=== PATIENT | male | born 1995 | race American Indian/Alaskan Native ===

== ENCOUNTER → 2025-04-01 | Outpatient (BNVA) | payer BC, OTHER, SELFPAY | END | disposition home or self-care (01) | PROVIDERS: PCP Physician Assistant; Referring Provider Physician Assistant; Visit Provider Urology | DX: N31.9 Neuromuscular dysfunction of bladder, unspecified (principal); N46.9 Male infertility, unspecified; Z87.440 Personal history of urinary (tract) infections; G82.20 Paraplegia, unspecified; Z99.3 Dependence on wheelchair | CPT/HCPCS: 99212; G0463 ==